=== PATIENT | female | born 2000 | race Caucasian/White ===

== ENCOUNTER 2020-09-02 09:25 | Outpatient (REF) | payer OTHER, SELFPAY ==
--- NOTE | 2020-09-02 | US_ITS ---
EXAMINATION: US ABDOMEN COMPLETE CLINICAL INFORMATION: Upper abdominal pain. COMPARISON: None. TECHNIQUE: Real-time imaging of the abdominal viscera. FINDINGS: PANCREAS: Normal. ABDOMINAL AORTA: The proximal, mid, and distal segments are normal in caliber. INFERIOR VENA CAVA: Visualized portions are normal. LIVER: The liver is normal in size. The liver contour is normal. There is increased liver echogenicity. No focal hepatic lesion. There is no intrahepatic biliary duct dilatation seen. GALLBLADDER: Normal. The gallbladder is physiologically distended without evidence of stones, sludge, polyps, wall thickening or pericholecystic fluid. COMMON BILE DUCT: Normal in caliber measuring 0.3 cm in diameter. RIGHT KIDNEY: Normal. No hydronephrosis. No renal calculi or focal parenchymal lesions. The kidney measures 10.0 cm in maximum dimension. LEFT KIDNEY: Normal. No hydronephrosis. No renal calculi or focal parenchymal lesions. The kidney measures 9.8 cm in maximum dimension. SPLEEN: Normal. The spleen measures 10.3 cm in maximum dimension. FREE FLUID: None. US/US abdomen complete IMPRESSION: Diffuse increased liver echogenicity without any focal lesion seen. The rest of the abdominal ultrasound is unremarkable.
== END 2020-09-02 09:26 | disposition home or self-care (01) ==
LOC: HO.US 09:25
PROVIDERS: PCP Family Medicine; Visit Provider Internal Medicine Gastroenterology
DX: R10.10 Upper abdominal pain, unspecified (principal)
CPT/HCPCS: 76700

== ENCOUNTER 2020-09-08 11:47 | Day surgery (SDC) | payer OTHER, SELFPAY ==
[2020-09-01 19:21] VITALS: BMI 18.8
--- NOTE | 2020-09-08 12:16 | HO.ANESPROP2 ---
HPI - Anesthesia Eval Consult details Narrative: 19yo female patient here for EGD and Colonoscopy. [facility] Past Medical History Medical History Amputation of finger, right Diarrhea Family History Family history of problems with anesthesia: No Surgical History History of Problems with Anesthesia: No Social History Social History Smoking Status: Never smoker Second Hand Smoke Exposure: No Use of substances other than those prescribed or required for medical reasons: No Advance Directives: No Advance Directives Information Provided: No Advance Directives on File: No Recently lost weight without trying: No Meds Allergies Allergy/AdvReac Type Severity Reaction Status Date / Time No Known Allergies Allergy Verified 09/08/20 12: Home Medications Medication Instructions Recorded Confirmed Type etonogestrel [Nexplanon] mg SUBDERMAL 09/01/20 09/01/20 History Exam Exam Date and Time: September 08, 2020 1216 Height,Weight and Vital Signs: Height 5 ft 2 in Weight 46.72 kg Vital Signs Temp Pulse Resp BP Pulse Ox 09/08/20 12:24 96.9 F 105 H 16 123/76 98 Pertinent Lab Results Pertinent Lab Results: Lab Results 09/08/20 Range/Units 12:10 Urine Test NEGATIVE (NEGATIVE) Airway Mallampati Class: I TM Dist: >3cm Neck ROM: Full Loose/Missing/Broken Teeth: No Heart: RRR Lungs: CTAB Assessment and Plan Assessment Anesthesia Assessment: Anesthesia Plan Discussed and Chart Reviewed Final Anesthetic Review NPO: Yes ASA Class: I Final Preanesthetic Review: No Changes in Pt Med Stat, Meds/Allgs Chart Reviewed, Consent Obtained/Reviewed and Anes Risks/Benef Reviewed Patient Risk: Low Procedure Risk: Low Assessment/Block/Sedation in SS: Assess/Block/Sedation-SS Anesthetic Plan Anesthetic Plan: MAC: Disposition: Standard PACU
[2020-09-08 12:24] VITALS: BP 123/76; PULSE 105; RESP 16; TEMP 36.1; O2SAT 98
[2020-09-08 12:24] LABS: UPreg QC Valid YES; Urine Pregnancy NEGATIVE (NEGATIVE)
[2020-09-08] MEDS: Lactated Ringers 1,000 ML 100 ML IVCONT (12:44)
--- NOTE | 2020-09-08 13:08 | MHC.SHP ---
Pre-Procedural Eval Section A The patient is an INPATIENT: No Changes since office visit: No Cold of Flu in the past 2 weeks, No New Medical Problems, No Changes in Medication and No Patient answered all questions The History & Physical has been completed within 30 days and I have reviewed it.: Yes Section B Chief Complaint: diarrhea,right upper pain Allergies: Allergies Allergy/AdvReac Type Severity Reaction Status Date / Time No Known Allergies Allergy Verified 09/08/20 12:21 Plan I have reviewed the history and physical and performed a pertinent physical examination on my patient. No changes have occurred unless specified.
[2020-09-08 13:48] VITALS: BP 90/37; PULSE 67; RESP 18; TEMP 36.7; O2SAT 98
--- NOTE | 2020-09-08 13:50 | PM.OP ---
Brief Operative Note Date of Service: 09/08/20 Pre-op diagnosis: see H&P no changes Post-op diagnosis: same (normal EGD and colonoscopy) Procedure: see above Surgeon: Rafa Sifuentes Anesthesia: MAC Estimated blood loss (mL): 5 Pathology: other (bxs duodenum,antrum,egj, ti,sigmoid) Condition: stable Disposition: PACU
[2020-09-08 14:03] VITALS: BP 94/55; PULSE 71; RESP 18; O2SAT 100
[2020-09-08 14:18] VITALS: BP 105/63; PULSE 70; RESP 18; O2SAT 100
--- NOTE | 2020-09-08 14:31 | PC.NURSE ---
1425 awake alert flo po req br monitors dcd amb to br steady void and ret to pacu 12 dress for dc call damico in reach
--- NOTE | 2020-09-08 14:32 | OP_ITS ---
SURGEON: Rafa Sifuentes MD INDICATIONS: Right upper quadrant pain, diarrhea, and family history of Crohn's disease. PREOPERATIVE DIAGNOSIS: POSTOPERATIVE DIAGNOSIS: PROCEDURE PERFORMED: 1. Upper endoscopy with biopsy. 2. Colonoscopy to the terminal ileum with biopsy. ESTIMATED BLOOD LOSS: COMPLICATIONS: ANESTHESIA: ASSISTANTS: SPECIMENS: MEDICATIONS: Monitored anesthesia care. DESCRIPTION OF PROCEDURE: History and physical performed. The risks and benefits of the procedure were explained to the patient. Informed consent was obtained. The patient was placed in the left lateral decubitus position. The Olympus video gastroscope was introduced into the esophagus, stomach, and duodenum. Examination was performed. The scope was removed, she was repositioned for colonoscopy. A digital rectal exam was performed and was found to be normal. The Olympus pediatric video colonoscope was introduced into the rectum and advanced to the cecum without difficulty. The cecum was identified by transillumination, palpation, and identification of ileocecal valve. Examination was performed. The scope was removed. She tolerated both procedures well and she was taken to Recovery in stable condition. FINDINGS: UPPER ENDOSCOPY: 1. Esophagus: The esophagus was normal. There was no esophagitis. 2. Stomach: The stomach showed no evidence of masses, ulcers, or polyps. 3. Duodenum: The bulb and second portion were normal. Biopsies were obtained from the second portion of the duodenum, the antrum, and EG junction. COLONOSCOPY: The terminal ileum was normal. The visualized colonic mucosa was normal. The quality of prep was good. Retroflexed examination was normal. No polyps were identified. There was no endoscopic evidence of Crohn's disease on either examination. Random biopsies were obtained from the terminal ileum and sigmoid. IMPRESSION: Normal upper endoscopy and colonoscopy. RECOMMENDATION: Follow up with biopsy results. Colon cancer screening is recommended every 10 years for average risk individuals beginning by age 50. MD MONIQUE Cabello/OLIVE / [phone] [facility]
--- NOTE | 2020-09-08 14:52 | HO.POSTANES ---
Post Anesthesia Evaluation Post Anesthesia Evaluation Vital Signs: Vital Signs Temp Pulse Resp BP Pulse Ox 09/08/20 14:18 98.0 F 70 18 105/63 100 09/08/20 14:03 71 18 94/55 L 100 09/08/20 13:48 98.0 F 67 18 90/37 L 98 09/08/20 12:24 96.9 F 105 H 16 123/76 98 Anesthesia: Monitored Mental Status: Awake Pain Control: Satisfactory Nausea/Vomiting: None Hydration: Adequate Anesthesia-Related Issues: No Anes. Related Issues
== END 2020-09-08 14:44 | disposition home or self-care (01) ==
PROVIDERS: Anesthesiology; Visit Provider Internal Medicine Gastroenterology
PROC: (CPT 45380; principal; 2020-09-08 13:10)
DX: R19.7 Diarrhea, unspecified (principal); R10.11 Right upper quadrant pain; Z83.79 Family history of other diseases of the digestive system; Z97.5 Presence of (intrauterine) contraceptive device; Z89.021 Acquired absence of right finger(s)
CPT/HCPCS: 45380; 43239; 81025; 88305; 88342